=== PATIENT | female | born 1990 | race Caucasian/White ===

== ENCOUNTER 2018-09-24 17:46 | Emergency (ER) | payer BC ==
--- NOTE | 2018-09-24 17:56 | EDM.PDOC ---
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 Review of systems: As per history of present illness and below otherwise all systems reviewed and negative. Past medical history: As per history of present illness and as reviewed below otherwise noncontributory. Surgical history: As per history of present illness and as reviewed below otherwise noncontributory. Social history: No reported history of drug or alcohol abuse. Family history: As per history of present illness and as reviewed below otherwise noncontributory. Physical exam: HEENT: Atraumatic, normocephalic, pupils reactive, negative for conjunctival pallor or scleral icterus, mucous membranes moist, throat clear, neck supple, nontender, trachea midline. Lungs: Clear to auscultation, breath sounds equal bilaterally, chest nontender. Heart: S1S2, regular, negative for clicks, rubs, or JVD. Abdomen: Soft, nondistended, nontender. Negative for masses or hepatosplenomegaly. Negative for costovertebral tenderness. Pelvis: Stable nontender. Genitourinary: Deferred. Rectal: Deferred. Extremities: Atraumatic, negative for cords or calf pain. Neurovascular unremarkable. Neuro: Awake, alert, oriented. Cranial nerves II through XII unremarkable. Cerebellum unremarkable. Motor and sensory unremarkable throughout. Exam nonfocal. Diagnostics: heart tones were 154 and strong nitrazine test was performed and was positive second trimester ultrasound Therapeutics: None Impression: #1 medical screening exam #2 second trimester with membrane rupture Definitive disposition and diagnosis as appropriate pending reevaluation and review of above. - Related Data Allergies Allergy/AdvReac Type Severity Reaction Status Date / Time seasonal Allergy Other Uncoded 09/24/18 17:54 Home Meds: Home Meds . 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 Last dose heparin over 24 hours ago - Past Surgical History GI Surgical History: Reports: Other (See Below) Social & Family History - Family History Family Medical History: Noncontributory - Caffeine Use Caffeine Use: Reports: Coffee ED ROS GENERAL - Review of Systems Review Of Systems: ROS reveals no pertinent complaints other than HPI. ED EXAM, GENERAL - Physical Exam Exam: See Below (The dictation) Course - Vital Signs Last Recorded V/S: Last Vital Signs Temp 98.5 F 09/24/18 19:35 Pulse 80 09/24/18 19:35 Resp 16 09/24/18 19:35 BP 95/71 09/24/18 19:35 Pulse Ox 96 09/24/18 19:35 - Orders/Labs/Meds Orders: Active Orders 24 hr Category Date Time Status Amniotic Fluid POC Testing [POC Labs] [RC] ASDIRECTED Care 09/24/18 18:03 Active Labs: Laboratory Tests 09/24/18 09/24/18 Range/Units 18:09 19:40 WBC 17.37 H (4.0-11.0) K/uL RBC 4.48 (4.30-5.90) M/uL Hgb 13.2 (12.0-16.0) g/dL Hct 37.8 (36.0-46.0) % MCV 84.4 (80.0-98.0) fL MCH 29.5 (27.0-32.0) pg MCHC 34.9 (31.0-37.0) g/dL RDW Std Deviation 40.3 (28.0-62.0) fl RDW Coeff of Alpesh 13 (11.0-15.0) % Plt Count 466 H (150-400) K/uL MPV 9.10 (7.40-12.00) fL Neut % (Auto) 79.8 (48.0-80.0) % Lymph % (Auto) 10.8 L (16.0-40.0) % Wythe % (Auto) 7.8 (0.0-15.0) % Eos % (Auto) 1.2 (0.0-7.0) % Baso % (Auto) 0.4 (0.0-1.5) % Neut # (Auto) 13.9 H (1.4-5.7) K/uL Lymph # (Auto) 1.9 (0.6-2.4) K/uL Wythe # (Auto) 1.4 H (0.0-0.8) K/uL Eos # (Auto) 0.2 (0.0-0.7) K/uL Baso # (Auto) 0.1 (0.0-0.1) K/uL Nucleated RBC % 0.0 /100WBC Nucleated RBCs # 0 K/uL Membrane Rupture POSITIVE Departure - Departure Disposition: DC/Tfer to Other 70 Clinical Impression: membrane rupture - Discharge Information Referrals: PCP,None [Primary Care Provider] - Forms: ED Department Discharge Additional Instructions: Proceed as instructed by Dr. Negrete, directly to [facility] for further care The following information is given to patients seen in the emergency department who are being discharged to home. This information is to outline your options for follow-up care. We provide all patients seen in our emergency department with a follow-up referral. The need for follow-up, as well as the timing and circumstances, are variable depending upon the specifics of your emergency department visit. If you don't have a primary care physician on staff, we will provide you with a referral. We always advise you to contact your personal physician following an emergency department visit to inform them of the circumstance of the visit and for follow-up with them and/or the need for any referrals to a consulting specialist. The emergency department will also refer you to a specialist when appropriate. This referral assures that you have the opportunity for follow-up care with a specialist. All of these measure are taken in an effort to provide you with optimal care, which includes your follow-up. Under all circumstances we always encourage you to contact your private physician who remains a resource for coordinating your care. When calling for follow-up care, please make the office aware that this follow-up is from your recent emergency room visit. If for any reason you are refused follow-up, please contact the [facility] emergency department at and asked to speak to the emergency department charge nurse. <Richard Abdul - Last Filed: 09/24/18 20:07> ED HPI GENERAL MEDICAL PROBLEM - History of Present Illness INITIAL COMMENTS - FREE TEXT/NARRATIVE: I've received the patient for follow-up at shift change, ultrasound was pending as well as Dr. Negrete, OB provider from [place] whom is the patient's primary OB physician has been in consult for management and disposition, ultrasound findings have been discussed in detail with Dr. Negrete as well as CBC, she is recommending, discharge from the ER ;the patient will travel by private vehicle to [facility] to [facility], Dr. Negrete is making arrangements ahead of time for this, she is also directly speaking with her patient on the telephone and has voiced this plan to the patient. ED ROS GENERAL - Review of Systems Review Of Systems: See Below ED EXAM, GENERAL - Physical Exam Exam: See Below Departure - Departure Time of Disposition: 20:04 Condition: Fair
--- NOTE | 2018-09-24 19:46 | US ---
HISTORY: Vaginal leaking. Evaluate for premature rupture membranes. COMPARISON: None. TECHNIQUE: obstetric ultrasound. FINDINGS: Cardiac activity by M-mode ultrasound is 144 beats per minute. CEDRICK is normal at 13.9 cm. Subjectively, amniotic fluid volume is within normal limits. The cervix measures 3.2 cm in length. There is no prolapse of parts or funneling. There is a hypoechoic collection along the surface of the placenta, which is nonspecific, measuring 5.6 cm in maximum length. Single living intrauterine fetus, transverse presentation. Low lying placenta. Measurements are as follows: Biparietal diameter: 43 mm, corresponding to a gestational age of 19 weeks, 0 days. Head circumference: 158 mm, corresponding to a gestational age of 18 weeks, 5 days. Abdominal circumference: 141 mm, corresponding to a gestational age of 19 weeks, 4 days. Femur length: 25 mm, corresponding to a gestational age of 17 weeks, 4 days. The HC/AC ratio is 1.12. The normal range is 1.07-1.29. Estimated weight is 247 g (+/- 36 g). This places the fetus at the greater than 98th percentile. The ultrasound gestational age today is 18 weeks, 5 days, corresponding to an ultrasound JOHAN of 02/20/2019. By LMP, the gestational age currently is 17 weeks, 0 days, corresponding to an JOHAN of 03/04/2018. IMPRESSION: 1. Single living intrauterine fetus, currently in a transverse presentation. 2. The ultrasound gestational age today is 18 weeks, 5 days, corresponding to an ultrasound JOHAN of 02/20/2019. 3. Subjectively, amniotic fluid volume is within normal limits. CEDRICK is in the range of normal. Given the clinical suspicion for premature rupture of membranes, UI [employer] consultation is advised. 4. Low-lying placenta, with a hypoechoic, 5.6 cm subtle lucency along the surface of the placenta. Differential diagnosis includes placental abruption/hematoma, but should be correlated for a history of maternal hypertension or trauma. Sonographic/clinical follow-up is suggested for this finding. 5. This report is in agreement with the preliminary report submitted by [facility], 09/24/2018, 1944 hours. Dictated by Seymour Padgett MD @ Sep 27 2018 12:58PM Signed by Dr. Seymour Padgett @ Sep 27 2018 1:07PM
[2018-09-24 20:22] VITALS: BP 117/66
== END 2018-09-24 20:30 | disposition other institution (70) ==
LOC: MW.ED 17:46
DX: O42.912 Preterm premature rupture of membranes, unspecified as to length of time between rupture and onset of labor, second trimester (principal); Z3A.18 18 weeks gestation of pregnancy
CPT/HCPCS: 36415; 76815; 76815-26; 84112; 85025; 99284; 99285-25

== ENCOUNTER 2022-12-22 12:40 | Emergency (ER) | payer OTHER ==
[2022-12-22] MEDS ORDERED: Lidocaine 1% 5 ML VIAL INJECT ONE (12:43)
[2022-12-22 13:01] VITALS: BP 102/69
[2022-12-22 14:15] VITALS: PULSE 84
== END 2022-12-22 14:15 | disposition home or self-care (01) ==
LOC: MW.ED 12:40
DX: S61.212A Laceration without foreign body of right middle finger without damage to nail, initial encounter (principal); S61.214A Laceration without foreign body of right ring finger without damage to nail, initial encounter; S61.200A Unspecified open wound of right index finger without damage to nail, initial encounter; J45.909 Unspecified asthma, uncomplicated; Z91.048 Other nonmedicinal substance allergy status; W26.8XXA Contact with other sharp object(s), not elsewhere classified, initial encounter; Y92.89 Other specified places as the place of occurrence of the external cause; Y99.0 Civilian activity done for income or pay
CPT/HCPCS: 12001; 99282; 99283; J3490